=== PATIENT | female | born 1990 | race Caucasian/White ===

== ENCOUNTER → 2017-10-10 | Outpatient (CLI) | payer OTHER ==
[2015-11-23 14:05] VITALS: BP 106/71
--- NOTE | 2017-10-10 12:43 | MRI ---
HISTORY: Cervicalgia. Cervical radiculopathy. Noncontrast MRI examination of the cervical spine. Technique: Multiplanar multi-sequence MRI of the cervical spine was obtained. Sagittal T1, sagittal T2, and stir weighted images, axial T1, and axial T2 images were obtained. Findings: The cervical spine demonstrates lordotic straightening with the expected signal characteristics of th e bone marrow. There is straightening of the normal cervical lordosis. There is a posterior disc bulg e at C5-6 which does not create severe spinal canal or foraminal stenosis. There is slight anterior c ompression of the thecal space at this level, however. There is disc desiccation seen from C2 through C6. No other disc pathology is seen. There is no evidence for an acute fracture, compression deformi ty, or aggressive marrow lesion. There is normal spinal cord signal seen without abnormal T2 signal, cord expansion, or spinal cord contusion. No intrathecal mass lesion or intrathecal hemorrhage is see n. There is no evidence for cerebellar tonsillar ectopia. The surrounding cervical soft tissues are unremarkable. No other abnormalities are seen. IMPRESSION: Abnormal straightening of the normal cervical lordosis which can be due to muscle spasm or subacute/c hronic neck pain; please correlate for any history of prior trauma. Broad-based posterior disc bulge at C5-6 which does not create severe spinal canal or foraminal steno sis. There is slight anterior compression of the thecal space at this level from the C5-6 disc bulge, however. There is disc desiccation seen from C2 through C6. No other disc pathology is seen. No acute fracture or abnormal ligamentous signal is seen. Reported By:
== END | disposition home or self-care (01) | DRG 552 ==
LOC: RAD 09:37
PROVIDERS: ATTEND Nurse Practitioner Family
DX: M50.30 Other cervical disc degeneration, unspecified cervical region (principal); M40.56 Lordosis, unspecified, lumbar region
CPT/HCPCS: 72141